=== PATIENT | female | born 1985 | race Caucasian/White ===

== ENCOUNTER 2016-07-17 17:25 | Inpatient (IN) | payer OTHER ==
[~2016-07-17] VITALS: Ht 165.1 cm; Wt 133.9 kg
[2016-07-17 18:36] VITALS: BP 112/68; RESP 18
[2016-07-17 18:44] VITALS: PULSE 95
[2016-07-17] MEDS ORDERED: NACL 0.9% 3 ML SYG IV SCH (19:30)
[2016-07-17] MEDS ORDERED: ENOXAPARIN 40 MG/0.4 ML SYG SC SCH (19:30)
[2016-07-17] MEDS ORDERED: HYDROCODONE/APAP (5/325) TAB PO PRN (19:30)
[2016-07-17] MEDS ORDERED: HYDROmorphONE 1 MG/ML SYG IV PRN (19:30)
[2016-07-17] MEDS ORDERED: NITROGLYCERIN (SL) 0.4 MG TAB SL PRN (19:30)
[2016-07-17 20:17] VITALS: BP 104/60; RESP 18
[2016-07-17 20:43] VITALS: Ht 165.1 cm; Wt 133.9 kg
--- NOTE | 2016-07-17 20:43 | HP ---
Date/Time of Note Date/Time of Note DATE: 07/17/16 TIME: 20:13 Assessment/Plan VTE Prophylaxis VTE Prophylaxis Intervention: other (Lovenox) Assessment/Plan Assessment/Plan 1) NSTEMI, Troponins Trending Down. Patient pain free since early this morning when she arrived at [facility] - Admit to Telemetry - Troponin and EKG tonight - CONSULT: Cardiology - Dr. Hinton, but one of his associates is production maintenance mechanic and accepts the Consult - AM Labs: CBC, BMP, CHD Profile, TSH, Mg - Patient agrees that she will never do Methamphetamines again "I've learned my lesson". HPI/ROS Admit Date/Time Admit Date/Time Jul 17, 2016 at 18:09 Hx of Present Illness Patient is transferred to us from [facility]. There, she was diagnosed with NSTEMI. Her tachycardia improved with Beta [place]eba. Hypomagnesemia was replaced. Her Troponins were trending down, 0.74 at 0230 and 0.62 at 0715 today. She has been pain free since she arrived there and her palpitations had also resolved. No nausea, SOB or diaphoresis. She had a pain in the region of her left antecubital fossa (where she points) which she described as a muscle spasm that also resolved. She currently has no complaints or concerns. She admits to having used Methamphetamine yesterday afternoon. She had similar symptoms about a week before. At [place], she had a CTA Pulmonary with Contrast: No CT evidence of pulmonary embolism or other acute cardiopulmonary process. Fatty Liver. Other labs include the following: WBC = 12.3 with 81% N H/H = 13.0/39.3 PLT = 245 Na+ = 137 K+ = 3,5 Cl- = 102 HCO3 = 25 BUN/Cr = 9/0.75 ROS General: Admits: Denies: Fever, Chills, Poor Appetite, Abnormal Weight Loss, Generalized Body Aches Eyes: Admits: Denies: Blurry Vision, Double Vision, Yellow Eyes HENT: Admits: Denies: Sinus Pain/Pressure, Ear Pain/Pressure, Runny/Stuffy Nose, Sore Throat Cardiovascular: Admits: Denies: Chest Pain, Palpitations, Leg Swelling Pulmonary: Admits: Denies: Cough, Wheeze, Shortness of Breath Gastrointestinal: Admits: Denies: Abdominal Pain, Nausea, Vomiting, Diarrhea, Blood in Stool, Black-Colored Stool Urogenital: Admits: Denies: Burning with Urination, Urinary Frequency, Blood in Urine, Nocturia Musculoskeletal: Admits: Denies: Joint Pain, Joint Swelling, Muscle Pain Neurological: Admits: Denies: Headache, Dizziness, Numbness, Tingling, Shooting Pains Integumentary: Admits: Denies: Rash, Itch, Yellow Skin Endocrine: Admits: Denies: Excessive Thirst, Excessive Hunger, Intolerant to Cold , Intolerant to Heat Psychiatric: Admits: Denies: Anxiety, Depression PMH/Family/Social Past Medical History Medical History: no pertinent history Past Surgical History Past Surgical Hx: no surgical history Family History Significant Family History: diabetes (Mother), hypertension (Mother; Maternal Grandmother) Social History . 2 girls, ages 10 and 4 years old. Not working currently. Alcohol Use: rarely (1 Beer) Smoking Status: Never smoker Drug Use: other (Methamphetamine - last used afternoon of 07/16/16) Exam/Review of Systems Vital Signs Vitals Vital Signs Date Time Temp Pulse Resp B/P Pulse Ox O2 Delivery O2 Flow Rate FiO2 07/17/16 18:44 95 07/17/16 18:36 97.6 18 112/68 96 Exam Exam General: Obese female, alert and oriented, in no acute distress Eyes: Sclera White, EOMI HENT: Normocephalic/Atraumatic, External Ears/Nose Normal, Moist Mucus Membranes Neck: Supple, Trachea Midline Cardiovascular: Normal Rate, Normal Rhythm, Normal S1 and S2, No Murmur, No Extra Sounds, No Pedal Edema Pulmonary: Clear to Auscultation Bilaterally, Normal Respiratory Effort, No Rales, Rhonchi or Wheezes Gastrointestinal: Normoactive Bowel Sounds, Soft, Non-Tender/Non-Distended Urogenital: Deferred Musculoskeletal: Normal Muscle Bulk and Tone Neurological: CN II - XII Grossly Intact, Non-Focal, Speech Normal Integumentary: Normal Moisture and Temperature, Good Turgor, No Jaundice, No Rash Lymphatic: No Cervical Lymphadenopathy Psychiatric: Appropriate Mood and Affect, Good Eye Contact GARTH AGUILAR DO Jul 17, 2016 20:25
[2016-07-17 20:47] VITALS: PULSE 100
[2016-07-17] MEDS: FAMOTIDINE 20 MG TAB PO SCH (21:03)
[2016-07-17 21:34] LABS: PROTIME 13.2 Sec (12.2-14.2)
[2016-07-18] VITALS (12 sets, daily range): BP systolic 102–127; BP diastolic 57–71; PULSE 71–171; RESP 17–19
[2016-07-18 07:26] LABS: ADD SCAN DIFF NO
[2016-07-18 07:34] LABS: BASOPHIL # 0.1 10^3/ul (0.0-0.1); BASOPHILS % 0.8 % (0.0-2.0); EOSINOPHILS # 0.1 10^3/ul (0.0-0.5); EOSINOPHILS % 1.7 % (0.0-7.0); HEMATOCRIT 37.8 % (37.0-47.0); HEMOGLOBIN 12.1 g/dl (12.0-16.0); LYMPHOCYTES # 1.1 10^3/ul (0.8-2.9); LYMPHOCYTES % 16.6 % (15.0-51.0); MEAN CORPUSCULAR HEMOGLOBIN 27.8 pg (29.0-33.0); MEAN CORPUSCULAR VOLUME 86.9 fl (82.0-101.0); MEAN PLATELET VOLUME 12.1 fl (7.4-10.4); MONOCYTE # 0.4 10^3/ul (0.3-0.9); MONOCYTES % 6.8 % (0.0-11.0); NEUTROPHIL # 4.7 10^3/ul (1.6-7.5); NEUTROPHILS % 73.8 % (39.0-77.0); PLATELET COUNT 219 10^3/UL (140-415); RED BLOOD COUNT 4.35 10^6/ul (4.20-5.40); RED CELL DISTRIBUTION WIDTH 13.9 % (11.5-14.5); WHITE BLOOD COUNT 6.3 10^3/ul (4.8-10.8)
[2016-07-18 07:41] LABS: POTASSIUM 3.9 mmol/L (3.5-5.1)
[2016-07-18 07:44] LABS: CREATININE 0.65 mg/dl (0.44-1.00)
[2016-07-18 07:45] LABS: CHOL/HDL RATIO 2.5 RATIO
[2016-07-18 08:14] LABS: THYROID STIMULATING HORMONE 2.98 MIU/L (0.465-4.680)
[2016-07-18] MEDS: FAMOTIDINE 20 MG TAB PO SCH ×2 (08:47→20:32)
--- NOTE | 2016-07-18 10:37 | RADRPT ---
Vent Rate: 93 bpm RR Interval: 0 msec MA Interval: 162 msec QRS Duration: 80 msec QT Interval: 364 msec QTC Interval: 452 msec P-R-T [place]: 46 - 9 - 35 degrees Normal sinus rhythm Possible Anterior infarct , age undetermined Abnormal ECG Electronically Signed By: Gunner Magallon [id number]
[2016-07-18] MEDS: ACETAMINOPHEN 325 MG TAB PO PRN ×2 (11:52→20:32)
--- NOTE | 2016-07-18 13:19 | RADRPT ---
Echocardiogram Report Patient Name: POLO JONES Gender: Female Date: 1985 Study Date: 18-Jul-2016 [place] Farmer: Osbaldo Kang [facility] Location: 5562 Ref. Physician: DIRK SOTELO Quality: Good Procedures: Transthoracic echocardiogram with complete 2D, M-Mode, and doppler examination. Indications: NSTEMI. 2D/M Mode Doppler Measurement Value Normal Ranges Measurement Value Normal Ranges LVIDd 2D 4.7 3.5 - 5.6 cm AV Peak [place] 1.4 m/sec LVIDs 2D 2.9 2.1 - 4.1 cm AV Peak PG 8.0 mmHg FS 2D 38.7 % LVOT Peak [place] 1.0 m/sec LVPWd 2D 0.9 0.6 - 1.1 cm LVOT Peak PG 4.0 mmHg IVSd 2D 1.0 0.6 - 1.1 cm MV E Peak [place] 0.9 m/sec IVS/LVPW 2D 1.1 MV A Peak [place] 0.6 m/sec AoR Diam 2D 2.4 2.0 - 3.7 cm MV E/A 1.4 LA/Ao 2D 1 0 - 1 MV Decel Time 106 msec EDV 2D 104.0 cm3 MV E/A 1.4 ESV 2D 23.9 cm3 TR Peak [place] 1.9 m/sec LA Dimen 2D 3.3 2.3 - 4.0 cm TR Peak PG 15.0 mmHg RVSP 18.0 mmHg Findings Left Ventricle: Normal left ventricular systolic function. Normal left ventricular cavity size. Normal left ventricular wall thickness. Ejection fraction is visually estimated at 60 %. Tissue Doppler/Mitral Doppler indices are within normal limits. Right Ventricle: Normal right ventricular size. Normal right ventricular systolic function. Left Atrium: The left atrium is normal in size. Right Atrium: The right atrium is normal in size. Mitral Valve: Normal appearance and function of the mitral valve with trace physiologic regurgitation. Aortic Valve: Normal appearance of the aortic valve. No significant aortic stenosis or insufficiency. Tricuspid Valve: Normal appearance and function of the tricuspid valve with trace physiologic regurgitation. Estimated peak PA systolic pressure 18 mmHg. Pulmonic Valve: Normal pulmonic valve appearance. Pericardium: Normal pericardium with no significant pericardial effusion. Aorta: Normal aortic root. IVC: Normal size and normal respiratory collapse consistent with normal right atrial pressure. Conclusions 1.Normal left ventricular systolic function. Normal left ventricular cavity size. Normal left ventricular wall thickness. Ejection fraction is visually estimated at 60 %. Tissue Doppler/Mitral Doppler indices are within normal limits. 2.Normal right ventricular size. Normal right ventricular systolic function. 3.The left atrium is normal in size. 4.The right atrium is normal in size. 5.No significant valvular stenosis or regurgitation seen. 6.Normal pericardium with no significant pericardial effusion. Electronically Signed By: Chidi Hinton 18-Jul-2016 13:18:40 -0700 Patient Name: POLO JONES Study Date: 18-Jul-2016 [id number]
[2016-07-18] MEDS ORDERED: INFLUENZA VIRUS VACCINE 0.5 ML SYG IM* ONE (15:00)
--- NOTE | 2016-07-18 15:10 | CONS ---
Date/Time of Note Date/Time of Note DATE: 07/18/16 TIME: 15:02 Assessment/Plan Assessment/Plan Additional Assessment/Plan Elevated troponin Preserved ejection fraction Methamphetamine use Abnormal LFTs -Patient with chest pain and palpitations after using methamphetamines for the first time yesterday. Troponins are have since been trending down. Echocardiogram with preserved ejection fraction. No significant arrhythmias seen on telemetry. Discussed with the patient extensively the importance of cessation of illicit drug use. Blood pressure trend remained stable. Would start low-dose aspirin. No statin given abnormal LFTs. Consultation Date/Type/Reason Admit Date/Time Jul 17, 2016 at 18:09 Type of Consultation: cv Reason for Consultation Elevated troponin Hx of Present Illness This is a 30-year-old female who presents with chest pain and abnormal troponin. Patient used methamphetamine for the first time yesterday afternoon. Afterwards, patient with palpitations and recurrent chest pain. Because of that she went to the emergency room for evaluation. Patient found to have elevated troponins of 0.7 was transferred to our facility for further management and care. Her chest pain has resolved since yesterday evening. Prior to this episode, she denies exertional chest pain, shortness of breath, dizziness palpitations. She is active. She denies any fevers or chills or abdominal pain. 12 point review of systems was performed with all pertinent positives and negatives mentioned above and all else is negative Past Medical History Medical History: no pertinent history Past Surgical History Multiple C-sections Family History Significant Family History: no pertinent family hx Social History Alcohol Use: rarely (1 Beer) Smoking Status: Current some day smoker Drug Use: other (Methamphetamine - last used afternoon of 07/16/16) Exam/Review of Systems Vital Signs Vitals Vital Signs Date Time Temp Pulse Resp B/P Pulse Ox O2 Delivery O2 Flow Rate FiO2 07/18/16 12:32 82 07/18/16 12:07 98.3 19 127/58 97 Intake and Output 07/17/16 07/17/16 07/18/16 15:00 23:00 07:00 Intake Total 480 ml Balance 480 ml Exam No apparent distress Constitutional: alert, obese, oriented Head: normocephalic Neck: supple Respiratory: clear to auscultation, normal air movement Cardiovascular: other (S1-S2 heard, no murmurs appreciated), regular rate and rhythm Gastrointestinal: bowel sounds, non-tender, other (No guarding), soft Extremities: other (No edema or cyanosis) Results Result Diagram: 07/18/16 0639 07/18/16 0639 Results 24 hrs Laboratory Tests Test 07/17/16 20:51 07/17/16 21:05 07/18/16 06:39 Prothrombin Time 13.2 Prothrombin Time Ratio 1.0 INR International Normalized Ratio 1.00 Troponin I 0.209 *H White Blood Count 6.3 Red Blood Count 4.35 Hemoglobin 12.1 Hematocrit 37.8 Mean Corpuscular Volume 86.9 Mean Corpuscular Hemoglobin 27.8 L Mean Corpuscular Hemoglobin Concent 32.0 Red Cell Distribution Width 13.9 Platelet Count 219 Mean Platelet Volume 12.1 H Neutrophils % 73.8 Lymphocytes % 16.6 Monocytes % 6.8 Eosinophils % 1.7 Basophils % 0.8 Nucleated Red Blood Cells % 0.0 Neutrophils # 4.7 Lymphocytes # 1.1 Monocytes # 0.4 Eosinophils # 0.1 Basophils # 0.1 Nucleated Red Blood Cells # 0.0 Sodium Level 142 Potassium Level 3.9 Chloride Level 104 Carbon Dioxide Level 28 Anion Gap 14 Blood Urea Nitrogen 13 Creatinine 0.65 Glucose Level 86 Calcium Level 9.0 Magnesium Level 1.9 Triglycerides Level 60 Cholesterol Level 115 LDL Cholesterol, Calculated 57 HDL Cholesterol 46 Cholesterol/HDL Ratio 2.5 Thyroid Stimulating Hormone (TSH) 2.980 Medications Medications Current Medications Nitroglycerin (Nitroglycerin (Sl Tab) 0.4 Mg) 1 tab Q5M PRN SL CHEST PAIN; Start 07/17/16 at 19:30 Acetaminophen (Tylenol Tab) 650 mg Q6H PRN PO PAIN LEVEL 1-3 OR FEVER Last administered on 07/18/16 11:52; Admin Dose 650 MG; Start 07/17/16 at 19:30 Acetaminophen/ Hydrocodone Bitart ([place] (5/325)) 1 tab Q6H PRN PO PAIN LEVEL 4 -6; Start 07/17/16 at 19:30 Hydromorphone HCl (Dilaudid) 0.5 mg Q4H PRN IV PAIN LEVEL 7-10; Start 07/17/16 at 19:30 Famotidine (Pepcid) 20 mg Q12 PO Last administered on 07/18/16 08:47; Admin Dose 20 MG; Start 07/17/16 at 21:00 Procedures Procedures ECG done today demonstrates sinus rhythm at 93 bpm, QRS 80 ms, no significant ischemic STT wave abnormalities Chidi Hinton DO Jul 18, 2016 15:10
--- NOTE | 2016-07-18 19:04 | PN ---
Date/Time of Note Date/Time of Note DATE: 07/18/16 TIME: 19:02 Assessment/Plan VTE Prophylaxis VTE Prophylaxis Intervention: SCD's Lines/Catheters IV Catheter Type (from Nrs): Saline Lock Urinary Cath still in place: No Assessment/Plan Assessment/Plan Elevated troponin Preserved ejection fraction Methamphetamine use Abnormal LFTs troponin trending down ECHO showed presered EF, cardiology following possibel d/c home on friday Subjective 24 Hr Interval Summary Free Text/Dictation ECH orderd, no chest pain, cardiolgoy following Exam/Review of Systems Vital Signs Vitals Vital Signs Date Time Temp Pulse Resp B/P Pulse Ox O2 Delivery O2 Flow Rate FiO2 07/18/16 16:21 75 07/18/16 16:00 97.5 18 102/57 100 Room Air Intake and Output 07/17/16 07/17/16 07/18/16 15:00 23:00 07:00 Intake Total 480 ml Balance 480 ml Exam No apparent distress Constitutional: alert, obese, oriented Head: normocephalic Neck: supple Respiratory: clear to auscultation, normal air movement Cardiovascular: other (S1-S2 heard, no murmurs appreciated), regular rate and rhythm Gastrointestinal: bowel sounds, non-tender, other (No guarding), soft Extremities: other (No edema or cyanosis) Results Result Diagram: 07/18/16 0639 07/18/16 0639 Results 24 hrs Laboratory Tests Test 07/17/16 20:51 07/17/16 21:05 07/18/16 06:39 Prothrombin Time 13.2 Prothrombin Time Ratio 1.0 INR International Normalized Ratio 1.00 Troponin I 0.209 *H White Blood Count 6.3 Red Blood Count 4.35 Hemoglobin 12.1 Hematocrit 37.8 Mean Corpuscular Volume 86.9 Mean Corpuscular Hemoglobin 27.8 L Mean Corpuscular Hemoglobin Concent 32.0 Red Cell Distribution Width 13.9 Platelet Count 219 Mean Platelet Volume 12.1 H Neutrophils % 73.8 Lymphocytes % 16.6 Monocytes % 6.8 Eosinophils % 1.7 Basophils % 0.8 Nucleated Red Blood Cells % 0.0 Neutrophils # 4.7 Lymphocytes # 1.1 Monocytes # 0.4 Eosinophils # 0.1 Basophils # 0.1 Nucleated Red Blood Cells # 0.0 Sodium Level 142 Potassium Level 3.9 Chloride Level 104 Carbon Dioxide Level 28 Anion Gap 14 Blood Urea Nitrogen 13 Creatinine 0.65 Glucose Level 86 Calcium Level 9.0 Magnesium Level 1.9 Triglycerides Level 60 Cholesterol Level 115 LDL Cholesterol, Calculated 57 HDL Cholesterol 46 Cholesterol/HDL Ratio 2.5 Thyroid Stimulating Hormone (TSH) 2.980 Medications Medications Current Medications Nitroglycerin (Nitroglycerin (Sl Tab) 0.4 Mg) 1 tab Q5M PRN SL CHEST PAIN; Start 07/17/16 at 19:30 Acetaminophen (Tylenol Tab) 650 mg Q6H PRN PO PAIN LEVEL 1-3 OR FEVER Last administered on 07/18/16 11:52; Admin Dose 650 MG; Start 07/17/16 at 19:30 Acetaminophen/ Hydrocodone Bitart ([place] (5/325)) 1 tab Q6H PRN PO PAIN LEVEL 4 -6; Start 07/17/16 at 19:30 Hydromorphone HCl (Dilaudid) 0.5 mg Q4H PRN IV PAIN LEVEL 7-10; Start 07/17/16 at 19:30 Famotidine (Pepcid) 20 mg Q12 PO Last administered on 07/18/16 08:47; Admin Dose 20 MG; Start 07/17/16 at 21:00 DIRK SOTELO MD Jul 18, 2016 19:04
[2016-07-19] VITALS (10 sets, daily range): BP systolic 102–115; BP diastolic 58–60; PULSE 50–102; RESP 16–18
[2016-07-19] MEDS ORDERED: METOCLOPRAMIDE 10 MG INJ IV PRN
[2016-07-19 07:09] LABS: ADD SCAN DIFF NO
[2016-07-19 07:14] LABS: BASOPHIL # 0.1 10^3/ul (0.0-0.1); BASOPHILS % 0.9 % (0.0-2.0); EOSINOPHILS # 0.1 10^3/ul (0.0-0.5); EOSINOPHILS % 2.4 % (0.0-7.0); HEMATOCRIT 38.4 % (37.0-47.0); HEMOGLOBIN 12.3 g/dl (12.0-16.0); LYMPHOCYTES # 1.4 10^3/ul (0.8-2.9); LYMPHOCYTES % 24.1 % (15.0-51.0); MEAN CORPUSCULAR HEMOGLOBIN 28.1 pg (29.0-33.0); MEAN CORPUSCULAR VOLUME 87.7 fl (82.0-101.0); MEAN PLATELET VOLUME 11.6 fl (7.4-10.4); MONOCYTE # 0.5 10^3/ul (0.3-0.9); MONOCYTES % 7.8 % (0.0-11.0); NEUTROPHIL # 3.7 10^3/ul (1.6-7.5); NEUTROPHILS % 64.5 % (39.0-77.0); PLATELET COUNT 224 10^3/UL (140-415); RED BLOOD COUNT 4.38 10^6/ul (4.20-5.40); RED CELL DISTRIBUTION WIDTH 13.5 % (11.5-14.5); WHITE BLOOD COUNT 5.8 10^3/ul (4.8-10.8)
[2016-07-19 07:25] LABS: INR 1.01; PROTIME 13.3 Sec (12.2-14.2)
[2016-07-19 07:26] LABS: PARTIAL THROMBOPLASTIN TIME 30.3 Sec (25.0-35.0)
[2016-07-19 07:31] LABS: CALCIUM 9.3 mg/dl (8.4-10.2); CREATININE 0.66 mg/dl (0.44-1.00)
[2016-07-19] MEDS: FAMOTIDINE 20 MG TAB PO SCH ×2 (08:39→20:35)
--- NOTE | 2016-07-19 10:40 | PN ---
Date/Time of Note Date/Time of Note DATE: 07/19/16 TIME: 10:39 Assessment/Plan VTE Prophylaxis VTE Prophylaxis Intervention: SCD's Lines/Catheters IV Catheter Type (from Nrs): Saline Lock Urinary Cath still in place: No Assessment/Plan Assessment/Plan Elevated troponin 2/2 Tachycardia Preserved ejection fraction Methamphetamine use causing sinus tachycardia Abnormal LFTs troponin trending down ECHO showed presered EF, cardiology following possibel d/c home on friday once HR stable Subjective 24 Hr Interval Summary Free Text/Dictation HR more stable,a febrile,BP stable , no chest pain Exam/Review of Systems Vital Signs Vitals Vital Signs Date Time Temp Pulse Resp B/P Pulse Ox O2 Delivery O2 Flow Rate FiO2 07/19/16 08:28 50 07/19/16 07:28 98.0 18 102/60 98 Room Air Intake and Output 07/18/16 07/18/16 07/19/16 15:00 23:00 07:00 Intake Total 550 ml Balance 550 ml Exam No apparent distress Constitutional: alert, obese, oriented Head: normocephalic Neck: supple Respiratory: clear to auscultation, normal air movement Cardiovascular: other (S1-S2 heard, no murmurs appreciated), regular rate and rhythm Gastrointestinal: bowel sounds, non-tender, other (No guarding), soft Extremities: other (No edema or cyanosis) Results Result Diagram: 07/19/16 0642 07/19/16 0642 Results 24 hrs Laboratory Tests Test 07/19/16 06:42 White Blood Count 5.8 Red Blood Count 4.38 Hemoglobin 12.3 Hematocrit 38.4 Mean Corpuscular Volume 87.7 Mean Corpuscular Hemoglobin 28.1 L Mean Corpuscular Hemoglobin Concent 32.0 Red Cell Distribution Width 13.5 Platelet Count 224 Mean Platelet Volume 11.6 H Neutrophils % 64.5 Lymphocytes % 24.1 Monocytes % 7.8 Eosinophils % 2.4 Basophils % 0.9 Nucleated Red Blood Cells % 0.0 Neutrophils # 3.7 Lymphocytes # 1.4 Monocytes # 0.5 Eosinophils # 0.1 Basophils # 0.1 Nucleated Red Blood Cells # 0.0 Prothrombin Time 13.3 Prothrombin Time Ratio 1.0 INR International Normalized Ratio 1.01 Activated Partial Thromboplast Time 30.3 Sodium Level 143 Potassium Level 4.0 Chloride Level 105 Carbon Dioxide Level 26 Anion Gap 16 Blood Urea Nitrogen 15 Creatinine 0.66 Glucose Level 99 Calcium Level 9.3 Magnesium Level 1.9 Medications Medications Current Medications Nitroglycerin (Nitroglycerin (Sl Tab) 0.4 Mg) 1 tab Q5M PRN SL CHEST PAIN; Start 07/17/16 at 19:30 Acetaminophen (Tylenol Tab) 650 mg Q6H PRN PO PAIN LEVEL 1-3 OR FEVER Last administered on 07/18/16 20:32; Admin Dose 650 MG; Start 07/17/16 at 19:30 Acetaminophen/ Hydrocodone Bitart ([place] (5/325)) 1 tab Q6H PRN PO PAIN LEVEL 4 -6; Start 07/17/16 at 19:30 Hydromorphone HCl (Dilaudid) 0.5 mg Q4H PRN IV PAIN LEVEL 7-10 Last administered on 07/19/16 00:05; Admin Dose 0.5 MG; Start 07/17/16 at 19:30 Famotidine (Pepcid) 20 mg Q12 PO Last administered on 07/19/16 08:39; Admin Dose 20 MG; Start 07/17/16 at 21:00 Metoclopramide HCl (Reglan) 10 mg Q4H PRN IV for nausea and vomiting Last administered on 07/19/16 00:05; Admin Dose 10 MG; Start 07/19/16 at 00:00 DIRK SOTELO MD Jul 19, 2016 10:40
--- NOTE | 2016-07-19 10:41 | PDOCDIS ---
Discharge Instructions CONDITION Patient Condition: Good HOME CARE INSTRUCTIONS: Special Diet: cardiac ACTIVITY: Activity Restrictions: Slowly Increase Activity Rest between Activity Avoid heavy lifting Avoid Heavy Housework FOLLOW UP/APPOINTMENTS Appointments follow up with her own PMD through HMO insurance in 1-2 week after discharge DIRK SOTELO MD Jul 19, 2016 10:41
--- NOTE | 2016-07-19 12:00 | CONS ---
Date/Time of Note Date/Time of Note DATE: 07/19/16 TIME: 11:58 Assessment/Plan Assessment/Plan Additional Assessment/Plan Elevated troponin Preserved ejection fraction Methamphetamine use Tachycardia Abnormal LFTs -Patient's troponin have been trending down. She denies any further chest pain or shortness of breath. Last night, patient with episode of tachycardia, on review of telemetry, appears like sinus tach versus atrial tachycardia. Baseline heart rate is in the 50s. Would not initiate any AV stone blocking agents at the current time. This could be secondary effects to patient's recent methamphetamine use. Consultation Date/Type/Reason Admit Date/Time Jul 17, 2016 at 18:09 Initial Consult Date Type of Consultation: cv 24 HR Interval Summary Free Text/Dictation Patient denies chest pain, shortness of breath or dizziness. Last night, episode of palpitations while on the phone. Exam/Review of Systems Vital Signs Vitals Vital Signs Date Time Temp Pulse Resp B/P Pulse Ox O2 Delivery O2 Flow Rate FiO2 07/19/16 08:28 50 07/19/16 07:28 98.0 18 102/60 98 Room Air Intake and Output 07/18/16 07/18/16 07/19/16 15:00 23:00 07:00 Intake Total 550 ml Balance 550 ml Exam No apparent distress Constitutional: alert, obese, oriented Head: normocephalic Neck: supple Respiratory: clear to auscultation, normal air movement, other Cardiovascular: other (S1-S2 heard), regular rate and rhythm Gastrointestinal: bowel sounds, non-tender, other (No guarding), soft Extremities: other (No edema or cyanosis) Results Result Diagram: 07/19/16 0642 07/19/16 0642 Results 24 hrs Laboratory Tests Test 07/19/16 06:42 White Blood Count 5.8 Red Blood Count 4.38 Hemoglobin 12.3 Hematocrit 38.4 Mean Corpuscular Volume 87.7 Mean Corpuscular Hemoglobin 28.1 L Mean Corpuscular Hemoglobin Concent 32.0 Red Cell Distribution Width 13.5 Platelet Count 224 Mean Platelet Volume 11.6 H Neutrophils % 64.5 Lymphocytes % 24.1 Monocytes % 7.8 Eosinophils % 2.4 Basophils % 0.9 Nucleated Red Blood Cells % 0.0 Neutrophils # 3.7 Lymphocytes # 1.4 Monocytes # 0.5 Eosinophils # 0.1 Basophils # 0.1 Nucleated Red Blood Cells # 0.0 Prothrombin Time 13.3 Prothrombin Time Ratio 1.0 INR International Normalized Ratio 1.01 Activated Partial Thromboplast Time 30.3 Sodium Level 143 Potassium Level 4.0 Chloride Level 105 Carbon Dioxide Level 26 Anion Gap 16 Blood Urea Nitrogen 15 Creatinine 0.66 Glucose Level 99 Calcium Level 9.3 Magnesium Level 1.9 Medications Medications Current Medications Nitroglycerin (Nitroglycerin (Sl Tab) 0.4 Mg) 1 tab Q5M PRN SL CHEST PAIN; Start 07/17/16 at 19:30 Acetaminophen (Tylenol Tab) 650 mg Q6H PRN PO PAIN LEVEL 1-3 OR FEVER Last administered on 07/18/16 20:32; Admin Dose 650 MG; Start 07/17/16 at 19:30 Acetaminophen/ Hydrocodone Bitart ([place] (5/325)) 1 tab Q6H PRN PO PAIN LEVEL 4 -6; Start 07/17/16 at 19:30 Hydromorphone HCl (Dilaudid) 0.5 mg Q4H PRN IV PAIN LEVEL 7-10 Last administered on 07/19/16 00:05; Admin Dose 0.5 MG; Start 07/17/16 at 19:30 Famotidine (Pepcid) 20 mg Q12 PO Last administered on 07/19/16 08:39; Admin Dose 20 MG; Start 07/17/16 at 21:00 Metoclopramide HCl (Reglan) 10 mg Q4H PRN IV for nausea and vomiting Last administered on 07/19/16 00:05; Admin Dose 10 MG; Start 07/19/16 at 00:00 Chidi Hinton DO Jul 19, 2016 12:00
[2016-07-19] MEDS ORDERED: MAGNESIUM SULFATE 2 GM/50 ML 50 ML IVPB ONE (12:30)
[2016-07-19] MEDS: ACETAMINOPHEN 325 MG TAB PO PRN ×2 (13:08→20:35)
[2016-07-20] VITALS (8 sets, daily range): BP systolic 103–134; BP diastolic 59–82; PULSE 49–83; RESP 18–19
[2016-07-20] MEDS: FAMOTIDINE 20 MG TAB PO SCH (09:25)
[2016-07-20] MEDS: ACETAMINOPHEN 325 MG TAB PO PRN (09:25)
--- NOTE | 2016-07-20 11:09 | PN ---
Date/Time of Note Date/Time of Note DATE: 07/20/16 TIME: 11:08 Assessment/Plan VTE Prophylaxis VTE Prophylaxis Intervention: SCD's Lines/Catheters IV Catheter Type (from Nrs): Saline Lock Urinary Cath still in place: No Assessment/Plan Assessment/Plan Elevated troponin Preserved ejection fraction Methamphetamine use Tachycardia Abnormal LFTs -Patient's troponin have been trending down. She denies any further chest pain or shortness of breath. Baseline heart rate is in the 50s. Would not initiate any AV stone blocking agents at the current time. This could be secondary effects to patient's recent methamphetamine use -d/c planning. Subjective 24 Hr Interval Summary Free Text/Dictation The patient with no change Exam/Review of Systems Vital Signs Vitals Vital Signs Date Time Temp Pulse Resp B/P Pulse Ox O2 Delivery O2 Flow Rate FiO2 07/20/16 08:18 97.7 96 19 103/61 95 07/20/16 05:49 Room Air Intake and Output 07/19/16 07/19/16 07/20/16 15:00 23:00 07:00 Intake Total 600 ml Balance 600 ml Results Result Diagram: 07/19/16 0642 07/19/16 0642 Medications Medications Current Medications Nitroglycerin (Nitroglycerin (Sl Tab) 0.4 Mg) 1 tab Q5M PRN SL CHEST PAIN; Start 07/17/16 at 19:30 Acetaminophen (Tylenol Tab) 650 mg Q6H PRN PO PAIN LEVEL 1-3 OR FEVER Last administered on 07/20/16 09:25; Admin Dose 650 MG; Start 07/17/16 at 19:30 Acetaminophen/ Hydrocodone Bitart ([place] (5/325)) 1 tab Q6H PRN PO PAIN LEVEL 4 -6; Start 07/17/16 at 19:30 Hydromorphone HCl (Dilaudid) 0.5 mg Q4H PRN IV PAIN LEVEL 7-10 Last administered on 07/19/16 00:05; Admin Dose 0.5 MG; Start 07/17/16 at 19:30 Famotidine (Pepcid) 20 mg Q12 PO Last administered on 07/20/16 09:25; Admin Dose 20 MG; Start 07/17/16 at 21:00 Metoclopramide HCl (Reglan) 10 mg Q4H PRN IV for nausea and vomiting Last administered on 07/19/16t 00:05; Admin Dose 10 MG; Start 07/19/16 at 00:00 KYRIE HERNANDEZ MD Jul 20, 2016 11:09
--- NOTE | 2016-07-20 11:12 | PN ---
Date/Time of Note Date/Time of Note DATE: 07/20/16 TIME: 11:10 Assessment/Plan VTE Prophylaxis VTE Prophylaxis Intervention: SCD's Lines/Catheters IV Catheter Type (from Nrs): [facility] [facility] Urinary Cath still in place: No Assessment/Plan Assessment/Plan Elevated troponin 2/2 Tachycardia Preserved ejection fraction Methamphetamine use causing sinus tachycardia Abnormal LFTs troponin trending down- improved ECHO showed presered EF, cardiology following possibel d/c home today Subjective 24 Hr Interval Summary Free Text/Dictation no chest pain, HR in 70s Exam/Review of Systems Vital Signs Vitals Vital Signs Date Time Temp Pulse Resp B/P Pulse Ox O2 Delivery O2 Flow Rate FiO2 07/20/16 08:18 97.7 96 19 103/61 95 07/20/16 05:49 Room Air Intake and Output 07/19/16 07/19/16 07/20/16 15:00 23:00 07:00 Intake Total 600 ml Balance 600 ml Exam No apparent distress Constitutional: alert, obese, oriented Head: normocephalic Neck: supple Respiratory: clear to auscultation, normal air movement Cardiovascular: other (S1-S2 heard, no murmurs appreciated), regular rate and rhythm Gastrointestinal: bowel sounds, non-tender, other (No guarding), soft Extremities: other (No edema or cyanosis) Results Result Diagram: 07/19/1664107/19/16641 Medications Medications Current Medications Nitroglycerin (Nitroglycerin (Sl Tab) 0.4 Mg) 1 tab Q5M PRN SL CHEST PAIN; Start 07/17/16 at 19:30 Acetaminophen (Tylenol Tab) 650 mg Q6H PRN PO PAIN LEVEL 1-3 OR FEVER Last administered on 07/20/16 09:25; Admin Dose 650 MG; Start 07/17/16 at 19:30 Acetaminophen/ Hydrocodone Bitart ([place] (5/325)) 1 tab Q6H PRN PO PAIN LEVEL 4 -6; Start 07/17/16 at 19:30 Hydromorphone HCl (Dilaudid) 0.5 mg Q4H PRN IV PAIN LEVEL 7-10 Last administered on 07/19/16 00:05; Admin Dose 0.5 MG; Start 07/17/16 at 19:30 Famotidine (Pepcid) 20 mg Q12 PO Last administered on 07/20/16 09:25; Admin Dose 20 MG; Start 07/17/16 at 21:00 Metoclopramide HCl (Reglan) 10 mg Q4H PRN IV for nausea and vomiting Last administered on 07/19/16 00:05; Admin Dose 10 MG; Start 07/19/16 at 00:00 DIRK SOTELO MD Jul 20, 2016 11:12
--- NOTE | 2016-07-21 00:09 | DS ---
DATE OF ADMISSION: 07/17/2016 DATE OF DISCHARGE: 07/20/2016 FINAL DISCHARGE DIAGNOSES: 1. Elevated troponin, likely secondary to severe tachycardia. 2. Symptomatic tachycardia secondary to methamphetamine use. 3. Abnormal liver function secondary to acute transaminitis secondary to fatty liver. CONSULTATIONS DONE DURING THIS HOSPITALIZATION: Cardiology consult, Dr. Hinton. HOSPITAL COURSE: This is a 30-year-old female who has no past medical history, who presented with a complaint of chest pain. She is noted to have positive elevated troponin in the emergency room. S he got admitted to the telemetry floor, had a cardiology consultation done by Dr. Hinton. The patie nt had a urine toxicology checked during this hospitalization, which the patient had a sinus tachyca rdia and symptomatic tachycardia secondary to amphetamine use. She remained symptom free, had a car diology consultation done by Dr. Hinton and had an echocardiogram done, which revealed a normal ejec tion fraction. She remained symptom free, but she had 1 episode of tachycardia with a heart rate u p to 150s-160s, for which she was kept in the telemetry floor for 1 more day. Her heart rate remain ed stable and she is getting discharged home today. DISPOSITION: To home. DISCHARGE CONDITION: Stable and improved compared to admission. DISCHARGE ACTIVITIES: As tolerated, slowly resume to the normal baseline activity. DISCHARGE DIET: Cardiac diet. DISCHARGE MEDICATIONS: As per medical reconciliation. DISCHARGE FOLLOWUP INSTRUCTIONS: The patient is to follow up with her own primary care doctor aron gh her HMO insurance 1-2 weeks after discharge. She has been explained about the discharge plan and followup instructions. She understood and verbalized understanding. Dictated By: DIRK SOTELO MD, KP/VIANEY Conf#: [id number] DID#: [id number]
== END 2016-07-20 17:17 | disposition home or self-care (01) | DRG 310 ==
LOC: MS4 18:09
PROVIDERS: ADMIT Family Medicine; ATTEND Family Medicine
DX: R00.0 Tachycardia, unspecified (principal); K76.0 Fatty (change of) liver, not elsewhere classified; T43.625A Adverse effect of amphetamines, initial encounter; Y92.009 Unspecified place in unspecified non-institutional (private) residence as the place of occurrence of the external cause; R74.0 Nonspecific elevation of levels of transaminase and lactic acid dehydrogenase [LDH]; R78.89 Finding of other specified substances, not normally found in blood
CPT/HCPCS: 80048; 80061; 83735; 84443; 84484; 85025; 85610; 85730; 87081; 90686; 93005; 93306; J1170; J1650; J2765; J3475

== ENCOUNTER 2017-01-31 01:45 | Inpatient (IN) | payer OTHER ==
[~2017-01-31] VITALS: Ht 165.1 cm; Wt 135.1 kg
[2017-01-31 03:51] VITALS: Ht 165.1 cm; Wt 135.1 kg
[2017-01-31] MEDS: SOD CHLORIDE 0.9% 1,000 ML IV SCH ×5 (04:14→22:22)
[2017-01-31] MEDS: morphine 2 MG INJ IV PRN ×4 (04:14→21:47)
[2017-01-31] MEDS: ONDANSETRON 4 MG INJ IV PRN ×4 (04:38→21:53)
[2017-01-31] MEDS ORDERED: NACL 0.9% 3 ML SYG IV SCH (05:00)
[2017-01-31] MEDS: CIPROFLOXACIN 400MG/D5W 200 ML IVPB SCH (05:20)
[2017-01-31 05:58] LABS: BASOPHILS % 0.6 % (0.0-2.0); EOSINOPHILS # 0.1 10^3/ul (0.0-0.5); EOSINOPHILS % 2.2 % (0.0-7.0); HEMATOCRIT 34.9 % (37.0-47.0); HEMOGLOBIN 11.2 g/dl (12.0-16.0); LYMPHOCYTES # 1.8 10^3/ul (0.8-2.9); LYMPHOCYTES % 35.7 % (15.0-51.0); MEAN CORPUSCULAR HEMOGLOBIN 28.6 pg (29.0-33.0); MEAN CORPUSCULAR HGB CONC 32.1 g/dl (32.0-37.0); MEAN CORPUSCULAR VOLUME 89.3 fl (82.0-101.0); MONOCYTE # 0.5 10^3/ul (0.3-0.9); MONOCYTES % 10.5 % (0.0-11.0); NEUTROPHIL # 2.5 10^3/ul (1.6-7.5); NEUTROPHILS % 50.8 % (39.0-77.0); PLATELET COUNT 199 10^3/UL (140-415); RED BLOOD COUNT 3.91 10^6/ul (4.20-5.40); RED CELL DISTRIBUTION WIDTH 13.6 % (11.5-14.5); WHITE BLOOD COUNT 4.9 10^3/ul (4.8-10.8)
[2017-01-31] MEDS ORDERED: PANTOPRAZOLE 40 MG INJ IV SCH (06:00)
[2017-01-31 06:48] LABS: ALBUMIN/GLOBULIN RATIO 0.85; CALCIUM 8.7 mg/dl (8.4-10.2); CHOL/HDL RATIO 2.7 RATIO; CREATININE 0.69 mg/dl (0.44-1.00); POTASSIUM 3.7 mmol/L (3.5-5.1); TOTAL PROTEIN 6.5 g/dl (6.1-8.1)
--- NOTE | 2017-01-31 07:06 | HP ---
Date/Time of Note Date/Time of Note DATE: 01/31/17 TIME: 06:55 Assessment/Plan VTE Prophylaxis VTE Prophylaxis Intervention: SCD's Lines/Catheters IV C[facility] Type [facility] Peripheral IV Assessment/Plan Chief Complaint/Hosp Course This is a 31 year female [facility] for: #1 acute pancreatitis: Etiology unknown at this time. Patient's MRCP was negative for any gallstones. Denies any alcohol use. Denies any recent drug use. Will check a right upper quadrant ultrasound. Will check a ethanol level for completeness sake. Will order lipid panel to evaluate triglycerides. We will keep the patient n.p.o.. Provide aggressive fluid hydration with normal saline. Pain control with morphine IV. Zofran for nausea #2 Morbid obesity: We will check a hemoglobin A1c, lipid panel, TSH #3 history of methamphetamine use: Urine drug screen was negative. #4 DVT GI prophylaxis: SCD, acid viktoriya Further treatment strategy will be implemented as per the clinical course Problems: HPI/ROS Admit Date/Time Admit Date/Time Jan 31, 2017 at 03:09 Hx of Present Illness Chief complaint: Abdominal pain 2 days This is a 31 oh female who was transferred from [facility] complaining of epigastric pain 2 days. Patient states that her epigastric pain started approximately 2 days ago and then radiated to the back. The pain first occurred when she was sleeping. She states it was 10 out of 10 sharp. Denies any nausea vomiting or diarrhea. At [facility] patient had labs drawn with a significant 1 showing a lipase greater than 400. Bilirubin of 1.6. An MRCP was done as well which showed acute pancreatitis but was negative for any choledocholithiasis. Her urine analysis was also positive for nitrites and leuk esterase. Patient was deemed stable and transferred to [facility]. Upon my examination patient was lying in bed in no acute distress. She did have tenderness to palpation between the epigastric and umbilical area. Patient denied any recent drug use or alcohol use. She could not recall what she ate prior to his episode starting. Allergies: NKDA Medications: None ROS Const: As per HPI Eyes : No pain discharge or redness or change in visual acuity ENT: No pain, sore throat, congestion, congestion, dysphagia or discharge Respiratory: No shortness of breath, cough, sputum, wheezing, or pleuritic pain Cardiovascular: No chest pain, palpitation, PND, or edema GI : As per HPI Genitourinary: No dysuria, hematuria, flank pain , discharge or CVA tenderness Musculoskeletal: No joint pain, back pain, neck pain, restricted range of motion in neck or joints Skin: No rash, bruising or hives Neuro: No headache, dizziness, syncope, seizure, focal weakness Endocrine: No polyuria, polydipsia, temperature intolerance Psych: No hallucination, depression, anxiety or suicidal ideation PMH/Family/Social Past Medical History Methamphetamine use, elevated troponin secondary to methamphetamine use Past Surgical History Cholecystectomy, 4 Family History Significant Family History: diabetes, hypertension Social History Alcohol Use: none Smoking Status: Never smoker Drug Use: other (Previous methamphetamine user) Exam/Review of Systems Vital Signs Vitals Intake and Output 01/30/17 01/30/17 01/31/17 15:00 23:00 07:00 Intake Total 400 ml Balance 400 ml Exam Exam General: This is a morbidly obese female lying in bed in no acute distress HEENT: Atraumatic, normocephalic. The pupils are equal, round and reactive. Extraocular motor are intact Neck: Supple with full range of motion. No rigidity or meningismus Chest: Nontender Lungs: Clear to auscultation bilaterally no crackles rales or wheezing Heart: Normal S1-S2, Regular rhythm and rate. No murmur, S3, or S4 Abdomen: Soft, nondistended, tender to palpation at the area between the epigastric and umbilical regions, no organomegaly appreciated. Extremities: Normal to inspection, no edema no cyanosis Neurologic: Normal mental status, speech normal, cranial nerves II through XII are intact, motor and sensory are intact, no focal weakness Additional Comments Pertinent laboratory findings from the transferring facility are as follows, please please see transfer documentation for full report: Bilirubin 1.6 all other LFTs within normal values. White blood cell count 8 Lipase greater than 400 Urinalysis: Positive nitrates positive leukoesterase Urine drug screen: Negative MRCP: Acute pancreatitis, negative for choledocholithiasis, Labs Result Diagram: 01/31/17 3267 Medications Medications Current Medications Morphine Sulfate (morphine) 2 mg Q3H PRN IV PAIN Last administered on t 04:14; Admin Dose 2 MG; Start 01/31/17 at 04:00 Ondansetron HCl 4 mg 4 mg Q4H PRN IV NAUSEA AND/OR VOMITING Last administered on 01/31/17 04:38; Admin Dose 4 MG; Start 01/31/17 at 04:00 Sodium Chloride (NS) 1,000 ml @ 200 mls/hr Q5H IV Last administered on 04:14; Admin Dose 200 MLS/HR; Start 01/31/17 at 04:00 Pantoprazole 40 mg 40 mg DAILY@06 IV Last administered on 01/31/17 05:22; Admin Dose 40 MG; Start 01/31/17 at 06:00 Ciprofloxacin/ Dextrose (Cipro Ivpb) 200 ml @ 200 mls/hr Q24H IVPB Last administered on 01/31/17 05:20; Admin Dose 200 MLS/HR; Start 01/31/17 at 05:00 ESTEE SANDERS Jan 31, 2017 07:06
[2017-01-31 07:11] LABS: THYROID STIMULATING HORMONE 2.77 MIU/L (0.465-4.680)
[2017-01-31 08:00] VITALS: BP 110/62; RESP 20
--- NOTE | 2017-01-31 08:48 | RADRPT ---
PROCEDURE: US right upper quadrant abdomen. CLINICAL INDICATION: Abdominal pain. Pancreatitis. Elevated bilirubin. Prior cholecystectomy. TECHNIQUE: Multiple real-time images were acquired of the patient's right upper quadrant abdomen utilizing a high resolution transducer. COMPARISON: None FINDINGS: The liver demonstrates increased echogenicity and enlarged size measuring 17.8 cm without focal lesi ons. Patent portal vein. Gallbladder surgically absent. Mild intrahepatic and extrahepatic biliary d ilatation. The common bile duct measures 9 mm in maximal dimension. The visualized portions of the pancreas are normal. Dilated pancreatic duct measuring 3 mm. The right kidney is normal size with n ormal echogenicity and morphology. The right kidney measures 12.3 cm. No hydronephrosis or perinep hric fluid collections. There are no areas of increased echogenicity to suggest nephrolithiasis. No rmal caliber aorta and IVC. No peritoneal free fluid. IMPRESSION: 1. Mild intrahepatic and extrahepatic biliary dilation with dilated common bile duct and pancreatic duct. No filling defect visualized. Recommend MRCP or ERCP. 2. Enlarged echogenic liver consistent with fatty infiltration. RPTAT:AAJJ Physician Alexis Date Time Electronically viewed and signed by Physician Alexis on 01/31/2017 08:48 /
[2017-01-31 14:00] VITALS: BP 116/60; RESP 18
[2017-01-31] MEDS: FAMOTIDINE 20 MG INJ IV SCH (20:49)
[2017-01-31 22:29] VITALS: BP 122/82; RESP 18
[2017-02-01 03:20] VITALS: BP 118/66; RESP 18
[2017-02-01] MEDS: SOD CHLORIDE 0.9% 1,000 ML IV SCH ×3 (03:47→17:05)
[2017-02-01] MEDS: morphine 2 MG INJ IV PRN ×3 (05:08→17:51)
[2017-02-01] MEDS: CIPROFLOXACIN 400MG/D5W 200 ML IVPB SCH (05:08)
[2017-02-01 06:33] LABS: BASOPHILS % 0.4 % (0.0-2.0); EOSINOPHILS # 0.1 10^3/ul (0.0-0.5); EOSINOPHILS % 2.2 % (0.0-7.0); HEMATOCRIT 35.2 % (37.0-47.0); HEMOGLOBIN 11.3 g/dl (12.0-16.0); LYMPHOCYTES # 1.4 10^3/ul (0.8-2.9); MEAN CORPUSCULAR HEMOGLOBIN 28.5 pg (29.0-33.0); MEAN CORPUSCULAR HGB CONC 32.1 g/dl (32.0-37.0); MEAN CORPUSCULAR VOLUME 88.7 fl (82.0-101.0); MONOCYTE # 0.3 10^3/ul (0.3-0.9); MONOCYTES % 6.7 % (0.0-11.0); NEUTROPHIL # 2.8 10^3/ul (1.6-7.5); NEUTROPHILS % 59.5 % (39.0-77.0); PLATELET COUNT 193 10^3/UL (140-415); RED BLOOD COUNT 3.97 10^6/ul (4.20-5.40); RED CELL DISTRIBUTION WIDTH 13.2 % (11.5-14.5); WHITE BLOOD COUNT 4.7 10^3/ul (4.8-10.8)
[2017-02-01 06:51] LABS: ALBUMIN 2.9 g/dl (3.3-4.9); ALBUMIN/GLOBULIN RATIO 0.82; BILIRUBIN,INDIRECT 1.4 mg/dl (0-1.1); BILIRUBIN,TOTAL 1.4 mg/dl (0.2-1.3); CALCIUM 8.5 mg/dl (8.4-10.2); CREATININE 0.66 mg/dl (0.44-1.00); POTASSIUM 3.7 mmol/L (3.5-5.1); TOTAL PROTEIN 6.4 g/dl (6.1-8.1)
[2017-02-01 06:55] LABS: MAGNESIUM 1.6 mg/dl (1.7-2.5); PHOSPHORUS 3.2 mg/dl (2.5-4.9)
[2017-02-01 08:14] VITALS: BP 116/65; RESP 18
[2017-02-01] MEDS: FAMOTIDINE 20 MG INJ IV SCH ×2 (08:43→20:58)
[2017-02-01] MEDS ORDERED: MAGNESIUM SULFATE 2 GM/50 ML 50 ML IVPB ONE (13:00)
[2017-02-01] MEDS: ONDANSETRON 4 MG INJ IV PRN ×2 (13:09→17:51)
--- NOTE | 2017-02-01 13:25 | PN ---
Date/Time of Note Date/Time of Note DATE: 02/01/17 TIME: 13:23 Assessment/Plan VTE Prophylaxis VTE Prophylaxis Intervention: ambulation Lines/Catheters IV [facility]ter Type (from [facility]): Peripheral IV Assessment/Plan Chief Complaint/Hosp Course 1. Acute pancreatitis. Etiology unclear. The patient is status post cholecystectomy. The patient's liver ultrasound from [facility] showing mild intrahepatic and extrahepatic biliary dilatation with dilated common bile duct and pancreatic duct. The patient had an MRCP from the transferring facility that was negative for any choledocholithiasis. The patient denies any history of alcohol abuse. The patient has no evidence of any hypertriglyceridemia. Therefore, the patient's etiology of the acute pancreatitis is idiopathic at this time. The patient's pancreatic enzymes has been trending down. The patient will be started on a diet. The patient will be continued on IV hydration. 2. Positive urinalysis from the transferring facility. The patient has been on empiric antibiotics. The patient denied any urinary symptoms. Will obtain final urine cultures from the transferring facility. 3. Morbid obesity. BMI of 135.1 kg/m. Weight reduction advised. Hemoglobin A1c within normal limits. 4. Fluids, electrolytes, and nutrition. Patient was started on a soft diet. The patient will be continued on IV hydration. 5. DVT prophylaxis. Ambulation. 6. Plan. Continue antimicrobials. Advance diet as tolerated. Trend pancreatic enzymes. Obtain final urine culture results from [facility] [place]. Case discussed with Dr. Zamarripa. Problems: Subjective 24 Hr Interval Summary Free Text/Dictation Denies any abdominal pain. Tolerating oral intake. Exam/Review of Systems Vital Signs Vitals Vital Signs Date Time Temp Pulse Resp B/P Pulse Ox O2 Delivery O2 Flow Rate FiO2 02/01/17 08:14 97.9 75 18 116/65 96 Intake and Output 01/31/17 01/31/17 02/01/17 14:59 22:59 06:59 Intake Total 800 ml 2000 ml 1350 ml Balance 800 ml 2000 ml 1350 ml Exam General: Morbidly obese 31 year-old female lying in bed in no apparent distress. HEENT: Normocephalic, atraumatic. Eyes: Anicteric sclerae, conjunctivae clear. ENT: Nasal septum midline, oral mucosa moist. Neck supple, no JVD noticed. Respiratory: Bilaterally clear breath sounds. No use of accessory muscles of respiration. No adventitious breath sounds. Cardiovascular: S1, S2 heard. No murmurs or gallops. Abdomen: Soft and nondistended. Bowel sounds positive in all 4 quadrants. Minimal epigastric tenderness. Genitourinary: No CVA tenderness. Extremities: No cyanosis, no clubbing, no edema. Peripheral pulses palpable. Neurologic: Cranial nerves II through XII grossly intact. The patient is awake, alert, and oriented. Skin: Normal skin turgor. No skin rashes. Results Result Diagram: 02/01/1752602/01/17526 Results 24 hrs Laboratory Tests Test 02/01/17 05:27 White Blood Count 4.7 L Red Blood Count 3.97 L Hemoglobin 11.3 L Hematocrit 35.2 L Mean Corpuscular Volume 88.7 Mean Corpuscular Hemoglobin 28.5 L Mean Corpuscular Hemoglobin Concent 32.1 Red Cell Distribution Width 13.2 Platelet Count 193 Mean Platelet Volume 12.0 H Neutrophils % 59.5 Lymphocytes % 31.0 Monocytes % 6.7 Eosinophils % 2.2 Basophils % 0.4 Nucleated Red Blood Cells % 0.0 Neutrophils # 2.8 Lymphocytes # 1.4 Monocytes # 0.3 Eosinophils # 0.1 Basophils # 0.0 Nucleated Red Blood Cells # 0.0 Sodium Level 138 Potassium Level 3.7 Chloride Level 108 Carbon Dioxide Level 26 Anion Gap 8 Blood Urea Nitrogen 6 L Creatinine 0.66 Glucose Level 75 Calcium Level 8.5 Phosphorus Level 3.2 Magnesium Level 1.6 L Total Bilirubin 1.4 H Direct Bilirubin 0.00 Indirect Bilirubin 1.4 H Aspartate Amino Transf (AST/SGOT) 22 Alanine Aminotransferase (ALT/SGPT) 33 Alkaline Phosphatase 64 Total Protein 6.4 Albumin 2.9 L Globulin 3.50 H Albumin/Globulin Ratio 0.82 Amylase Level 102 Lipase 181 Medications Medications Current Medications Morphine Sulfate (morphine) 2 mg Q3H PRN IV PAIN Last administered on 13:09; Admin Dose 2 MG; Start 01/31/17 at 04:00 Ondansetron HCl 4 mg 4 mg Q4H PRN IV NAUSEA AND/OR VOMITING Last administered on 02/01/17 13:09; Admin Dose 4 MG; Start 01/31/17 at 04:00 Sodium Chloride 1,000 ml @ 125 mls/hr Q8H IV Last administered on 02/01/17 11 :27; Admin Dose 200 MLS/HR; Start 01/31/17 at 04:00 Ciprofloxacin/ Dextrose (Cipro Ivpb) 200 ml @ 200 mls/hr Q24H IVPB Last administered on 02/01/17 05:08; Admin Dose 200 MLS/HR; Start 01/31/17 at 05:00 Famotidine 20 mg 20 mg BID IV Last administered on 02/01/17 08:43; Admin Dose 20 MG; Start 01/31/17 at 21:00 Magnesium Sulfate (Magnesium Sulfate 2 Gm/50 ml) 50 ml @ 25 mls/hr ONCE ONCE IVPB ; Start 02/01/17 at 13:00; Stop 02/01/17 at 14:59 AJ OCAMPO NP Feb 01, 2017 13:25
[2017-02-01 14:28] VITALS: BP 108/58; RESP 18
[2017-02-01 20:09] VITALS: BP 109/67; RESP 18
[2017-02-01] MEDS: HYDROCODONE/APAP (5/325) TAB PO PRN (23:50)
[2017-02-02] MEDS: SOD CHLORIDE 0.9% 1,000 ML IV SCH ×2 (01:24→08:28)
[2017-02-02 02:10] VITALS: BP 114/56; RESP 18
[2017-02-02 05:21] LABS: BASOPHILS % 0.5 % (0.0-2.0); EOSINOPHILS # 0.1 10^3/ul (0.0-0.5); EOSINOPHILS % 3.2 % (0.0-7.0); HEMATOCRIT 33.4 % (37.0-47.0); HEMOGLOBIN 10.8 g/dl (12.0-16.0); LYMPHOCYTES # 1.5 10^3/ul (0.8-2.9); LYMPHOCYTES % 37.2 % (15.0-51.0); MEAN CORPUSCULAR HGB CONC 32.3 g/dl (32.0-37.0); MEAN CORPUSCULAR VOLUME 86.5 fl (82.0-101.0); MEAN PLATELET VOLUME 12.1 fl (7.4-10.4); MONOCYTE # 0.4 10^3/ul (0.3-0.9); MONOCYTES % 9.2 % (0.0-11.0); NEUTROPHIL # 2.1 10^3/ul (1.6-7.5); NEUTROPHILS % 49.9 % (39.0-77.0); PLATELET COUNT 195 10^3/UL (140-415); RED BLOOD COUNT 3.86 10^6/ul (4.20-5.40); RED CELL DISTRIBUTION WIDTH 13.7 % (11.5-14.5); WHITE BLOOD COUNT 4.1 10^3/ul (4.8-10.8)
[2017-02-02] MEDS: CIPROFLOXACIN 400MG/D5W 200 ML IVPB SCH (05:22)
[2017-02-02 05:53] LABS: MAGNESIUM 1.8 mg/dl (1.7-2.5); PHOSPHORUS 4.1 mg/dl (2.5-4.9)
[2017-02-02 05:54] LABS: ALBUMIN 3.1 g/dl (3.3-4.9); BILIRUBIN,INDIRECT 1.1 mg/dl (0-1.1); BILIRUBIN,TOTAL 1.1 mg/dl (0.2-1.3); CALCIUM 8.6 mg/dl (8.4-10.2); CREATININE 0.72 mg/dl (0.44-1.00); POTASSIUM 3.7 mmol/L (3.5-5.1); TOTAL PROTEIN 6.2 g/dl (6.1-8.1)
[2017-02-02] MEDS: FAMOTIDINE 20 MG INJ IV SCH (08:28)
[2017-02-02 08:31] VITALS: BP 122/71; RESP 18
[2017-02-02] MEDS: HYDROCODONE/APAP (5/325) TAB PO PRN (08:36)
--- NOTE | 2017-02-02 11:49 | PDOCDIS ---
Discharge Instructions DIAGNOSIS Discharge Diagnosis Acute pancreatitis. UTI. CONDITION Patient Condition: Stable HOME CARE INSTRUCTIONS: Diet Instructions: Regular FOLLOW UP/APPOINTMENTS Follow-up Plan Armando Gaona MD Specialty: Internal Medicine Office Address: [address] [place], [place] [id number] Office OTHER ORDERS: Other Orders: 1. Take a regular diet as tolerated. 2. Complete the course of antibiotics 3. Follow-up with your primary care physician 1 week. If you do not have a primary care physician, please call Dr. Armando Gaona's office. 4. Resume activities as tolerated. AJ OCAMPO NP Feb 02, 2017 11:49
[2017-02-02] MEDS ORDERED: CEPH-443 PO (11:50)
--- NOTE | 2017-02-02 12:11 | DS ---
Date/Time of Note Date/Time of Note DATE: 02/02/17 TIME: 12:08 Discharge Summary Admission/Discharge Info Admit Date/Time Jan 31, 2017 at 03:09 Discharge Date/Time Discharge Diagnosis 1. Acute pancreatitis. 2. Urinary tract infection [uncomplicated]. 3. Morbid obesity. Patient Condition: Stable Procedures Liver Ultrasound IMPRESSION: 1. Mild intrahepatic and extrahepatic biliary dilation with dilated common bile duct and pancreatic duct. No filling defect visualized. Recommend MRCP or ERCP. 2. Enlarged echogenic liver consistent with fatty infiltration. MRCP (from outside facility). Negative for any choledocholithiasis. Hx of Present Illness Chief complaint: Abdominal pain 2 days This is a 31 oh female who was transferred from [facility] complaining of epigastric pain 2 days. Patient stated that her epigastric pain started approximately 2 days ago and then radiated to the back. The pain first occurred when she was sleeping. She stated it was 10 out of 10 sharp. Denied any nausea vomiting or diarrhea. At [facility] patient had labs drawn with a significant one showing a lipase greater than 400. Bilirubin of 1.6. An MRCP was done as well which showed acute pancreatitis but was negative for any choledocholithiasis. Her urine analysis was also positive for nitrites and leukocyte esterase. The patient was transferred to [facility] because of insurance reasons. Hospital Course The patient was admitted to inpatient setting. The patient was kept n.p.o. The patient was provided with adequate pain control. The patient was provided with aggressive IV hydration. Etiology of the patient's acute pancreatitis is unclear. The patient is status post cholecystectomy. The patient's liver ultrasound from [facility] showed mild intrahepatic and intrahepatic biliary dilatation with dilated common bile duct and pancreatic duct. However, the patient's MRCP from the transferring facility was negative for any choledocholithiasis. The patient denied any history of alcohol abuse. The patient had no evidence of any hypertriglyceridemia hence the patient's acute pancreatitis could have been idiopathic in origin. The patient had a positive urinalysis from the transferring facility. Consequently, the patient was started on empiric antibiotics. The patient was confirmed to have urinary tract infection with E. coli from [facility] with a colony count greater than 100,000 CFU per mL that was resistant to sulfa. Therefore, the patient will be discharged home on appropriate oral antibiotics. The patient is morbidly obese with a BMI of 49.6 kg/m. The patient was advised on weight reduction. The patient's hemoglobin A1c was within normal limits. The patient's fasting lipid panel did not show any significant hyperlipidemia. The patient's pancreatic enzymes were trended. Once the patient's pancreatic enzymes were trending down, the patient was started on a soft diet and the patient's diet was advanced as tolerated to a regular consistency diet without any significant gastrointestinal symptoms. The patient is clinically stable to be discharged home. The patient denied any complaints at the time of discharge. Discharge Instructions 1. Take a regular diet as tolerated. 2. Complete the course of antibiotics 3. Follow-up with your primary care physician 1 week. If you do not have a primary care physician, please call Dr. Armando Gaona's office. 4. Resume activities as tolerated. The patient verbalized understanding of her discharge instructions. Case discussed with Dr. Zamarripa. Home Meds Active Scripts Cephalexin* (Keflex*) 500 Mg Capsule, 500 MG PO Q12H for 7 Days, #14 CAP Prov:AJ OCAMPO NP 02/02/17 Discontinued Reported Medications [None] No Conflict Check 09/06/09 Follow-up Plan Armando Gaona MD Specialty: Internal Medicine Office Address: [address] [place] [address] Office Primary Care Provider Care Physician No Primary Time spent on discharge: > 30 minutes Pending Labs Laboratory Tests Test 02/02/17 04:38 White Blood Count 4.110^3/ul (4.8-10.8) Red Blood Count 3.8610^6/ul (4.20-5.40) Hemoglobin 10.8g/dl (12.0-16.0) Hematocrit 33.4% (37.0-47.0) Mean Corpuscular Volume 86.5fl (82.0-101.0) Mean Corpuscular Hemoglobin 28.0pg (29.0-33.0) Mean Corpuscular Hemoglobin Concent 32.3g/dl (32.0-37.0) Red Cell Distribution Width 13.7% (11.5-14.5) Platelet Count 77714^3/UL (140-415) Mean Platelet Volume 12.1fl (7.4-10.4) Neutrophils % 49.9% (39.0-77.0) Lymphocytes % 37.2% (15.0-51.0) Monocytes % 9.2% (0.0-11.0) Eosinophils % 3.2% (0.0-7.0) Basophils % 0.5% (0.0-2.0) Nucleated Red Blood Cells % 0.0/100WBC (0.0-0.0) Neutrophils # 2.110^3/ul (1.6-7.5) Lymphocytes # 1.510^3/ul (0.8-2.9) Monocytes # 0.410^3/ul (0.3-0.9) Eosinophils # 0.110^3/ul (0.0-0.5) Basophils # 0.010^3/ul (0.0-0.1) Nucleated Red Blood Cells # 0.010^3/ul (0.0-0.0) Sodium Level 140mmol/L (135-144) Potassium Level 3.7mmol/L (3.5-5.1) Chloride Level 109mmol/L (97-110) Carbon Dioxide Level 27mmol/L (21-31) Anion Gap 8 (8-16) Blood Urea Nitrogen 7mg/dl (7-20) Creatinine 0.72mg/dl (0.44-1.00) Glucose Level 86mg/dl (70-220) Calcium Level 8.6mg/dl (8.4-10.2) Phosphorus Level 4.1mg/dl (2.5-4.9) Magnesium Level 1.8mg/dl (1.7-2.5) Total Bilirubin 1.1mg/dl (0.2-1.3) Direct Bilirubin 0.00mg/dl (0.00-0.20) Indirect Bilirubin 1.1mg/dl (0-1.1) Aspartate Amino Transf (AST/SGOT) 21IU/L (15-46) Alanine Aminotransferase (ALT/SGPT) 33IU/L (13-69) Alkaline Phosphatase 65IU/L (42-121) Total Protein 6.2g/dl (6.1-8.1) Albumin 3.1g/dl (3.3-4.9) Globulin 3.10g/dl (1.3-3.2) Albumin/Globulin Ratio 1.00 Amylase Level 62U/L (11-123) Lipase 70U/L (23-300) AJ OCAMPO NP Feb 02, 2017 12:11
[2017-02-02 15:08] VITALS: BP 110/74; RESP 18
== END 2017-02-02 15:35 | disposition home or self-care (01) | DRG 439 ==
LOC: PP2 03:09
PROVIDERS: ADMIT Family Medicine; ATTEND Family Medicine
DX: K85.90 Acute pancreatitis without necrosis or infection, unspecified (principal); Z68.42 Body mass index [BMI] 45.0-49.9, adult; N39.0 Urinary tract infection, site not specified; E66.01 Morbid (severe) obesity due to excess calories
CPT/HCPCS: 76705; 80053; 80061; 80306; 82150; 83036; 83690; 83735; 84100; 84443; 85025; C9113; J0744; J2270; J2405; J3475; J7030